=== PATIENT | female | born 1975 | race African-American/Black ===

== ENCOUNTER → 2017-08-25 | Outpatient (CLI) | payer BC ==
[2015-02-11 22:13] VITALS: BP 162/102
--- NOTE | 2017-08-25 11:22 | KCIC ---
DATE: 08/25/2017. EXAM: BREAST BILATERAL ULTRASOUND, MAMMO SONYA DIAG BILAT. HISTORY: Right retroareolar and left lateral breast pain. COMPARISON: None currently available. This study was interpreted with the benefit of Computerized Aided Detection (CAD). FINDINGS: The breast parenchyma shows scattered fibroglandular densities. Breast parenchyma level B.. In the right retroareolar region, there is no mammographic correlate for breast pain. Laterally on the left, there is also no correlate for breast pain. Sonography at these sites also reveals no cause for pain. In the right retroareolar region, there are mildly prominent ducts no suspicious mass. Laterally on the left, there is a benign-appearing intraparenchymal lymph node measuring 8 x 7 x 4 mm. Medially and slightly superiorly on the right, there is a partially obscured, partially lobulated nodule measuring 10 x 6 mm. Sonographically, this is parallel, hypoechoic and oval and measures 9 x 8 x 6 mm. No internal flow is detectable on Doppler. Images of the right axilla reveal no enlarged lymph nodes. Elsewhere, a few scattered calcifications appear benign. BI-RADS CATEGORY: 0 INCOMPLETE: NEEDS ADDITIONAL IMAGING EVALUATION AND/OR PRIOR MAMMOGRAMS FOR COMPARISON.. RECOMMENDED FOLLOW-UP: MAMPREV REQUEST FOR PREVIOUS MAMMOGRAM. 1. No mammographic or sonographic correlate for breast tenderness. Recommend ongoing clinical follow-up. 2. A 9 mm mass superomedially on the right most likely represents a benign fibroadenoma. Prior examinations will be obtained and compared for stability, and an addendum issued. PQRS compliance statement: Patient information was entered into a reminder system with a target due date (now) for the next mammogram. Mammography is a sensitive method for finding small breast cancers, but it does not detect them all and is not a substitute for careful clinical examination. A negative mammogram does not negate a clinically suspicious finding and should not result in delay in biopsying a clinically suspicious abnormality. "Our facility is accredited by the [employer] Mammography Program."
== END | disposition home or self-care (01) ==
LOC: KCIC MAMMO 09:24
PROVIDERS: ATTEND Registered Nurse
DX: N64.4 Mastodynia (principal)
CPT/HCPCS: 76641; G0204; G0279; 77062; 77066